=== PATIENT | male | born 1960 | race Caucasian/White ===

== ENCOUNTER 2024-05-17 10:29 | Day surgery (SDC) | payer OTHER ==
[~2024-05-17] VITALS: Ht 165.1 cm; Wt 78.5 kg
[2024-05-17] MEDS ORDERED: MIDAZOLAM HCL 5 MG/5 ML VIAL ONE (12:33)
[2024-05-17] MEDS ORDERED: MEPERIDINE 100 MG INJ. 100 MG/ML VIAL ONE (12:33)
[2024-05-17] MEDS ORDERED: SIMETHICONE 40 MG/0.6 ML ML ONE (12:34)
[2024-05-17 17:08] VITALS: BP_SYST 122; PULSE 53; RESP 18; TEMP 97.7; O2SAT 98
== END 2024-05-17 15:55 | disposition home or self-care (01) ==
LOC: SDS 10:29 → SMU 10:30 → SDS 15:55
PROVIDERS: ATTEND Student in an Organized Health Care Education/Training Program
DX: Z12.11 Encounter for screening for malignant neoplasm of colon (principal); D12.2 Benign neoplasm of ascending colon; D12.4 Benign neoplasm of descending colon; K63.89 Other specified diseases of intestine; K57.30 Diverticulosis of large intestine without perforation or abscess without bleeding; K64.8 Other hemorrhoids; K64.4 Residual hemorrhoidal skin tags; I10 Essential (primary) hypertension; E78.5 Hyperlipidemia, unspecified; Z79.899 Other long term (current) drug therapy
CPT/HCPCS: 45380; 45385; 88305; 99152; G0378; J2250; J2175